=== PATIENT | female | born 1980 | race Caucasian/White ===

== ENCOUNTER → 2019-03-20 | Outpatient (CLI) | payer MEDICARE, OTHER ==
[2019-03-20 16:30] LABS: BASOPHILS ABSOLUTE AUTO 0.04 K/mm3 (0.00-0.23); BASOPHILS PERCENT AUTO 1 % (0-2); EOSINOPHILS ABSOLUTE AUTO 0.17 K/mm3 (0.00-0.68); EOSINOPHILS PERCENT AUTO 3 % (0-6); Hematocrit 42.7 % (33.0-51.0); Hemoglobin 13.8 g/dL (11.5-16.0); IMMATURE GRAN ABSOLUTE AUTO 0.01 K/mm3 (0.00-0.10); IMMATURE GRAN PERCENT AUTO 0 % (0-1); LYMPHOCYTES ABSOLUTE AUTO 1.67 K/mm3 (0.84-5.20); LYMPHOCYTES PERCENT AUTO 32 % (21-46); MONOCYTES ABSOLUTE AUTO 0.54 K/mm3 (0.16-1.47); MONOCYTES PERCENT AUTO 10 % (4-13); Mean Corpuscular HGB 29.7 pg (26.0-34.0); Mean Corpuscular HGB Conc 32.3 g/dL (31.5-36.5); Mean Corpuscular Volume 92 fL (80-100); Mean Platelet Volume 9.7 fL (9.1-12.4); NEUTROPHILS PERCENT AUTO 54 % (41-73); Platelet Count 301 K/mm3 (150-400); RDW Coefficient Variation 13.4 % (11.7-14.2); RDW Standard Deviation 45.9 fL (35.1-46.3); Red Blood Cell Count 4.64 M/mm3 (3.80-5.20); White Blood Cell Count 5.23 K/mm3 (4.00-11.30)
[2019-03-20 17:34] LABS: Percent Saturation 27.7 % (15.0-50.0)
[2019-03-20 17:43] LABS: Alanine Aminotransfer (ALT/SGP 23 U/L (12-78); Albumin, Blood 3.4 g/dL (3.4-5.0); Alk Phos 75 U/L (50-136); Anion Gap 6 mmol/L (6-16); Aspartate Aminotrans (AST/SGOT 21 U/L (12-37); Bilirubin, Total 0.4 mg/dL (0.1-1.0); Blood Urea Nitrogen 9 mg/dL (8-24); Bun/Creatinine Ratio 12.6 (12.0-20.0); CHOL/HDL RATIO 2.2; CO2, Blood 25 mmol/L (21-32); Calcium, Blood 8.9 mg/dL (8.5-10.1); Chloride, Blood 106 mmol/L (98-108); Cholesterol 196 mg/dL (50-200); Creatinine, Blood 0.71 mg/dL (0.40-1.00); Globulin, Blood 3.4 g/dL (2.2-4.0); Glomerular Filtration Rate >60 (60-); Glucose, Blood 88 mg/dL (70-99); HDL Cholesterol 90 mg/dL (>39); LDL/HDL RATIO 0.8; Low Density Lipoprotein Chol 73 mg/dL (0-110); Potassium, Blood 3.7 mmol/L (3.5-5.5); Prolactin 93.4 ng/mL; Sodium, Blood 137 mmol/L (136-145); Total Protein, Blood 6.8 g/dL (6.4-8.2); Triglycerides 164 mg/dL (30-140); Very Low Density Lipoprot Chol 32 mg/dL (6-28)
== END ==
LOC: LAB 14:56 → LAB SHORT 14:56
PROVIDERS: Family Medicine
DX: N64.3 Galactorrhea not associated with childbirth (principal); Z98.84 Bariatric surgery status; Z79.899 Other long term (current) drug therapy
CPT/HCPCS: 80053; 80061; 82306; 82607; 82728; 82746; 83540; 83550; 84146; 84443; 85025

== ENCOUNTER 2019-05-18 21:58 | Emergency (ER) | payer MEDICARE, OTHER ==
[~2019-05-18] VITALS: Ht 170.2 cm; Wt 108.9 kg
[2019-05-19] MEDS ORDERED: CEPH500 PO (00:52)
== END 2019-05-19 01:03 | disposition home or self-care (01) ==
LOC: ER 21:58
DX: S61.012A Laceration without foreign body of left thumb without damage to nail, initial encounter (principal); F17.210 Nicotine dependence, cigarettes, uncomplicated; Z23 Encounter for immunization; W26.0XXA Contact with knife, initial encounter
CPT/HCPCS: 12002; 90471; 90714; 99282; A9270-GY

== ENCOUNTER → 2023-04-13 | Outpatient (CLI) | payer MEDICARE, OTHER ==
[~2023-04-13] MED LIST: CEPH500 PO
[2023-04-22 12:45] LABS: HPV GENOTYPE 16 Not Detected; HPV GENOTYPE 18 Not Detected; HPV HIGH RISK Not Detected; HPV SOURCE Not Provided
== END ==
LOC: LAB SHORT 11:41 → LAB 11:41
PROVIDERS: Family Medicine
DX: Z12.4 Encounter for screening for malignant neoplasm of cervix (principal)
CPT/HCPCS: 87624; G0123

== ENCOUNTER → 2023-08-07 | Outpatient (CLI) | payer OTHER ==
[2023-08-07 14:09] LABS: Magnesium, Blood 2.4 mg/dL (1.6-2.4)
[2023-08-07 14:20] LABS: Albumin, Blood 3.9 g/dL (3.4-5.0); Albumin/Globulin Ratio 1.1 (0.8-1.8); Bilirubin, Direct 0.1 mg/dL (0.0-0.3); Bilirubin, Indirect 0.4 mg/dL (0.1-0.7); Bilirubin, Total 0.5 mg/dL (0.1-1.0); Free Thyroxine 1.23 ng/dL (0.70-1.60); Globulin, Blood 3.7 g/dL (2.2-4.0); Thyroid Stimulating Hormone 1.52 uIU/mL (0.360-4.800); Total Protein, Blood 7.6 g/dL (6.4-8.2)
[2023-08-08 21:15] LABS: ESTRADIOL BY IMMUNOASSAY 140 pg/mL
[2023-08-10 10:38] LABS: TESTOSTERONE BY MASS SPEC 24 ng/dL (9-55)
[2023-08-10 10:43] LABS: TESTOSTERONE, FREE MASS SPEC 1.5 pg/mL (1.1-5.8)
== END | disposition home or self-care (01) ==
LOC: LAB 11:33 → LAB SHORT 11:33
PROVIDERS: Nurse Practitioner Family
DX: L65.9 Nonscarring hair loss, unspecified (principal); E83.42 Hypomagnesemia; F10.20 Alcohol dependence, uncomplicated; R68.82 Decreased libido; R73.9 Hyperglycemia, unspecified
CPT/HCPCS: 80076; 82670; 83001; 83036; 83735; 84402; 84403; 84439; 84443

== ENCOUNTER → 2023-10-02 | Outpatient (CLI) | payer OTHER ==
[2023-10-02 15:52] LABS: BASOPHILS ABSOLUTE AUTO 0.04 K/mm3 (0.00-0.23); BASOPHILS PERCENT AUTO 1 % (0-2); EOSINOPHILS ABSOLUTE AUTO 0.06 K/mm3 (0.00-0.68); EOSINOPHILS PERCENT AUTO 1 % (0-6); Hematocrit 43.3 % (33.0-51.0); IMMATURE GRAN ABSOLUTE AUTO 0.03 K/mm3 (0.00-0.10); IMMATURE GRAN PERCENT AUTO 0 % (0-1); LYMPHOCYTES ABSOLUTE AUTO 1.92 K/mm3 (0.84-5.20); LYMPHOCYTES PERCENT AUTO 22 % (21-46); MONOCYTES ABSOLUTE AUTO 0.66 K/mm3 (0.16-1.47); MONOCYTES PERCENT AUTO 7 % (4-13); Mean Corpuscular HGB Conc 32.3 g/dL (31.5-36.5); Mean Corpuscular Volume 93 fL (80-100); Mean Platelet Volume 11.4 fL (9.1-12.4); NEUTROPHILS ABSOLUTE AUTO 6.15 K/mm3 (1.96-9.15); NEUTROPHILS PERCENT AUTO 69 % (41-73); Platelet Count 388 K/mm3 (150-400); RDW Standard Deviation 47.5 fL (35.1-46.3); Red Blood Cell Count 4.67 M/mm3 (3.80-5.20); White Blood Cell Count 8.86 K/mm3 (4.00-11.30)
[2023-10-02 16:15] LABS: Alanine Aminotransfer (ALT/SGP 55 U/L (12-78); Albumin, Blood 3.9 g/dL (3.4-5.0); Alk Phos 93 U/L (50-136); Anion Gap 7 mmol/L (3-11); Aspartate Aminotrans (AST/SGOT 26 U/L (12-37); Bilirubin, Direct 0.2 mg/dL (0.0-0.3); Bilirubin, Indirect 0.2 mg/dL (0.1-0.7); Bilirubin, Total 0.4 mg/dL (0.1-1.0); Blood Urea Nitrogen 16 mg/dL (8-24); CHOL/HDL RATIO 4.7; CO2, Blood 27 mmol/L (21-32); Calcium, Blood 9.6 mg/dL (8.5-10.1); Chloride, Blood 105 mmol/L (98-108); Cholesterol 177 mg/dL (50-200); Globulin, Blood 3.8 g/dL (2.2-4.0); Glucose, Blood 108 mg/dL (70-99); HDL Cholesterol 38 mg/dL (>39); Low Density Lipoprotein Chol 114 mg/dL (0-110); Potassium, Blood 3.6 mmol/L (3.5-5.5); Sodium, Blood 135 mmol/L (136-145); Total Protein, Blood 7.7 g/dL (6.4-8.2); Triglycerides 127 mg/dL (30-160); Very Low Density Lipoprot Chol 25 mg/dL (6-32)
[2023-10-02 16:16] LABS: Bun/Creatinine Ratio 22.4 (12.0-20.0); Creatinine, Blood 0.71 mg/dL (0.40-1.00); Glomerular Filtration Rate 107 (60-)
== END | disposition home or self-care (01) ==
LOC: LAB 14:56 → LAB SHORT 14:56
PROVIDERS: Nurse Practitioner Family
DX: K08.89 Other specified disorders of teeth and supporting structures (principal); G89.4 Chronic pain syndrome; I10 Essential (primary) hypertension
CPT/HCPCS: 80053; 80061; 82248; 85025

== ENCOUNTER → 2023-12-04 | Outpatient (CLI) | payer OTHER ==
[2023-12-04 20:12] LABS: Free Thyroxine 0.92 ng/dL (0.70-1.60); Thyroid Stimulating Hormone 1.26 uIU/mL (0.360-4.800)
== END ==
LOC: LAB 08:40 → LAB SHORT 08:40
PROVIDERS: Nurse Practitioner Family
DX: E53.8 Deficiency of other specified B group vitamins (principal); E55.9 Vitamin D deficiency, unspecified; E61.1 Iron deficiency; K91.2 Postsurgical malabsorption, not elsewhere classified; R00.0 Tachycardia, unspecified; Z98.84 Bariatric surgery status
CPT/HCPCS: 82607; 82746; 84439; 84443

== ENCOUNTER 2024-01-24 07:02 | Day surgery (SDC) | payer OTHER ==
[~2024-01-24] VITALS: Ht 172.7 cm; Wt 111.0 kg
[2024-01-24] VITALS (9 sets, daily range): BP systolic 119–147; BP diastolic 76–85
[~2024-01-24 07:02] MED LIST changes: +AMPDEX30CR PO; +BRINTELLIX20 MG PO; +BUPR150ER PO; +GABA300 PO; +HYDCHL25 PO; +Norco 10-325 T1 EACH PO; +POTCHL20ER PO; +RISP2 PO; +SINEMET 25-1001 EAC1 PO; +TORS10 PO
[2024-01-24] MEDS ORDERED: NS 500 ML IV SCH (07:20)
[2024-01-24] MEDS ORDERED: Ampicillin Sod/Sulbactam Sod 3 GM in NS 100 ML IV SCH (07:20)
[2024-01-24] MEDS ORDERED: propofoL 20 ML IV ONE (08:10)
[2024-01-24] MEDS ORDERED: Ondansetron HCl 2 MG / ML 2ML Vial ONE (08:10)
[2024-01-24] MEDS ORDERED: Dexamethasone Sod Phos 10 MG/ML 1ML VIAL ONE (08:10)
[2024-01-24] MEDS ORDERED: Midazolam HCl 1MG / ML 2ML Vial ONE (08:11)
[2024-01-24] MEDS ORDERED: FentaNYL Citrate 50 MCG/ML 2 ML Injection ONE (08:11)
[2024-01-24] MEDS ORDERED: Bupivacaine 0.5% HCl 5 MG/ML 30MLVIAL ONE (08:22)
[2024-01-24] MEDS ORDERED: Glycopyrrolate 0.2 MG/ML 5ML VIAL ONE (08:44)
[2024-01-24] MEDS ORDERED: HYDROmorphone HCl/Pf 1MG SYR ONE (08:57)
--- NOTE | 2024-01-24 09:44 | NUR ---
PT TO DAY SURGERY STEP DOWN FROM PACU; BEDSIDE REPORT RECEIVED. PT IS AWAKE, ALERT AND ORIENTED; ABLE TO MOVE SELF IN BED. VSS. AFEBRILE. PT HAS RECTAL PACKING COVERED WITH GUAZE AND MESH UNDERWEAR ON; C/D/I. PT DENIES PAIN AT THIS TIME.
[2024-01-24] MEDS ORDERED: HYDROcodone 5-APAP 325 TAB PO PRN (09:45)
--- NOTE | 2024-01-24 10:04 | NUR ---
Discharge instructions reviewed with patient. Patient verbalizes understanding. Copy given to patient to take home. Patient States Post-Procedure ride home has been arranged.
--- NOTE | 2024-01-24 10:12 | NUR ---
PO FLUIDS AND CRACKERS TOLERATED WELL. ICE PACK GIVEN.
== END 2024-01-24 10:53 | disposition home or self-care (01) ==
LOC: ORSCMMR 07:02 → ORD 08:30 → ORSCMMR 10:53
PROVIDERS: Surgery
PROC: 0DQQ0ZZ Repair Anus, Open Approach (ICD-10-PCS; principal; 2024-01-24 08:30)
DX: K60.30 Anal fistula, unspecified (principal); I10 Essential (primary) hypertension; F90.0 Attention-deficit hyperactivity disorder, predominantly inattentive type; F42.9 Obsessive-compulsive disorder, unspecified; R73.9 Hyperglycemia, unspecified; G25.81 Restless legs syndrome; E66.01 Morbid (severe) obesity due to excess calories; Z68.37 Body mass index [BMI] 37.0-37.9, adult; Z79.899 Other long term (current) drug therapy; Z87.891 Personal history of nicotine dependence
CPT/HCPCS: A9270; J0295; J1100; J1170; J1171; J2250; J2405; J2704; J3010; J7040

== ENCOUNTER → 2024-06-13 | Outpatient (CLI) | payer OTHER | END | disposition home or self-care (01) | LOC: LAB SHORT 10:26 → LAB 10:26 | DX: H66.001 Acute suppurative otitis media without spontaneous rupture of ear drum, right ear (principal) | CPT/HCPCS: 87070; 87205 ==

== ENCOUNTER → 2024-06-20 | Outpatient (CLI) | payer OTHER ==
[2024-06-20 11:59] LABS: BASOPHILS ABSOLUTE AUTO 0.05 K/mm3 (0.00-0.23); BASOPHILS PERCENT AUTO 1 % (0-2); EOSINOPHILS ABSOLUTE AUTO 0.16 K/mm3 (0.00-0.68); EOSINOPHILS PERCENT AUTO 2 % (0-6); Hematocrit 36.6 % (33.0-51.0); Hemoglobin 12.4 g/dL (11.5-16.0); IMMATURE GRAN ABSOLUTE AUTO 0.08 K/mm3 (0.00-0.10); IMMATURE GRAN PERCENT AUTO 1 % (0-1); LYMPHOCYTES ABSOLUTE AUTO 3.43 K/mm3 (0.84-5.20); LYMPHOCYTES PERCENT AUTO 34 % (21-46); MONOCYTES ABSOLUTE AUTO 0.53 K/mm3 (0.16-1.47); MONOCYTES PERCENT AUTO 5 % (4-13); Mean Corpuscular HGB 29.9 pg (26.0-34.0); Mean Corpuscular HGB Conc 33.9 g/dL (31.5-36.5); Mean Corpuscular Volume 88 fL (80-100); NEUTROPHILS ABSOLUTE AUTO 5.81 K/mm3 (1.96-9.15); NEUTROPHILS PERCENT AUTO 58 % (41-73); Platelet Count 587 K/mm3 (150-400); RDW Coefficient Variation 13.3 % (11.7-14.2); RDW Standard Deviation 43.4 fL (35.1-46.3); Red Blood Cell Count 4.15 M/mm3 (3.80-5.20); White Blood Cell Count 10.06 K/mm3 (4.00-11.30)
[2024-06-20 21:32] LABS: Progesterone 8.11 ng/mL; Thyroid Stimulating Hormone 1.32 uIU/mL (0.360-4.800)
[2024-06-20 21:57] LABS: Albumin, Blood 3.2 g/dL (3.4-5.0); Albumin/Globulin Ratio 0.7 (0.8-1.8); Bilirubin, Total 0.2 mg/dL (0.1-1.0); Bun/Creatinine Ratio 19.7 (12.0-20.0); Calcium, Blood 9.8 mg/dL (8.5-10.1); Creatinine, Blood 0.61 mg/dL (0.40-1.00); Globulin, Blood 4.4 g/dL (2.2-4.0); Potassium, Blood 3.4 mmol/L (3.5-5.5); Total Protein, Blood 7.6 g/dL (6.4-8.2)
[2024-06-21 19:02] LABS: HEPATITIS B SURFACE ANTIGEN Negative (Negative)
== END ==
LOC: LAB 11:48 → LAB SHORT 11:48
PROVIDERS: Family Medicine
DX: O09.521 Supervision of elderly multigravida, first trimester (principal)
CPT/HCPCS: 80053; 83036; 84144; 84443; 84702; 87340

== ENCOUNTER → 2025-03-05 | Outpatient (CLI) | payer OTHER ==
[2025-03-05 15:52] LABS: BASOPHILS ABSOLUTE AUTO 0.03 K/mm3 (0.00-0.23); BASOPHILS PERCENT AUTO 1 % (0-2); EOSINOPHILS ABSOLUTE AUTO 0.11 K/mm3 (0.00-0.68); EOSINOPHILS PERCENT AUTO 2 % (0-6); Hematocrit 45.4 % (33.0-51.0); Hemoglobin 14.9 g/dL (11.5-16.0); IMMATURE GRAN ABSOLUTE AUTO 0.00 K/mm3 (0.00-0.10); IMMATURE GRAN PERCENT AUTO 0 % (0-1); LYMPHOCYTES ABSOLUTE AUTO 2.31 K/mm3 (0.84-5.20); LYMPHOCYTES PERCENT AUTO 39 % (21-46); MONOCYTES ABSOLUTE AUTO 0.43 K/mm3 (0.16-1.47); MONOCYTES PERCENT AUTO 7 % (4-13); Mean Corpuscular HGB Conc 32.8 g/dL (31.5-36.5); Mean Corpuscular Volume 89 fL (80-100); NEUTROPHILS ABSOLUTE AUTO 3.05 K/mm3 (1.96-9.15); NEUTROPHILS PERCENT AUTO 51 % (41-73); NRBC ABSOLUTE 0.00 K/mm3 (0.00-0.02); NRBC Auto 0.0 /100 WBC (0.0-0.2); Platelet Count 403 K/mm3 (150-400); RDW Coefficient Variation 12.4 % (11.7-14.2); RDW Standard Deviation 40.8 fL (35.1-46.3)
[2025-03-05 20:17] LABS: Alanine Aminotransfer (ALT/SGP 32 U/L (12-78); Albumin, Blood 3.9 g/dL (3.4-5.0); Albumin/Globulin Ratio 1.1 (0.8-1.8); Anion Gap 9 mmol/L (3-11); Aspartate Aminotrans (AST/SGOT 13 U/L (12-37); Bilirubin, Total 0.3 mg/dL (0.1-1.0); Blood Urea Nitrogen 10 mg/dL (8-24); CHOL/HDL RATIO 3.1; CO2, Blood 28 mmol/L (21-32); Calcium, Blood 10.0 mg/dL (8.5-10.1); Chloride, Blood 105 mmol/L (98-108); Cholesterol 173 mg/dL (50-200); Creatinine, Blood 0.73 mg/dL (0.40-1.00); Ferritin, Serum 109 ng/mL (8-252); Globulin, Blood 3.5 g/dL (2.2-4.0); Glucose, Blood 105 mg/dL (70-99); HDL Cholesterol 55 mg/dL (>39); LDL/HDL RATIO 1.7; Low Density Lipoprotein Chol 91 mg/dL (0-110); Potassium, Blood 3.8 mmol/L (3.5-5.5); Sodium, Blood 138 mmol/L (136-145); Thyroid Stimulating Hormone 0.024 uIU/mL (0.360-4.800); Total Iron Binding Capacity 283 ug/dL (250-450); Total Protein, Blood 7.4 g/dL (6.4-8.2); Triglycerides 133 mg/dL (30-160); Very Low Density Lipoprot Chol 26 mg/dL (6-32)
[2025-03-07 08:33] LABS: HIV 1,2 COMBO ANTIGEN/ANTIBODY Negative (Negative)
== END ==
LOC: LAB 11:43 → LAB SHORT 11:43
PROVIDERS: Nurse Practitioner Family
DX: Z00.00 Encounter for general adult medical examination without abnormal findings (principal); Z11.4 Encounter for screening for human immunodeficiency virus [HIV]
CPT/HCPCS: 80053; 80061; 82728; 83036; 83540; 83550; 84439; 84443; 84481; 85025; 87389